=== PATIENT | male | born 1955 | race Caucasian/White ===

== ENCOUNTER 2022-02-09 15:08 | Emergency (ER) | payer OTHER ==
[2022-02-09 15:46] VITALS: BP 105/70; PULSE 85; TEMP 97; BMI 20.7
== END 2022-02-09 23:08 | disposition home or self-care (01) ==
LOC: JER 15:08
DX: F19.10 Other psychoactive substance abuse, uncomplicated (principal); I69.30 Unspecified sequelae of cerebral infarction
CPT/HCPCS: 70450-TC; 99284-25

== ENCOUNTER 2022-02-09 23:18 | Inpatient (IN) | payer OTHER ==
[2022-02-09 13:57] VITALS: BMI 20.7
[2022-02-09] MEDS ORDERED: NICOTINE POLACRILEX 2 MG GUM BUC PRN (23:32)
[2022-02-09] MEDS ORDERED: MAGNESIUM HYDROX 2400MG/30ML ORAL SUSPENSION 30 ML CUP PO PRN (23:32)
[2022-02-09] MEDS ORDERED: MELATONIN 5 MG TABLETS PO PRN (23:32)
[2022-02-09] MEDS ORDERED: MAGNESIUM CITRATE 300 ML BOTTLE PO PRN (23:32)
[2022-02-09] MEDS ORDERED: NICOTINE 10 MG CARTRIDGE (INHALER) IH PRN (23:32)
[2022-02-09] MEDS ORDERED: P-EPHED 60MG/TRIPROLIDI 2.5MG TABLET PO PRN (23:32)
[2022-02-09] MEDS ORDERED: guaiFENesin 200 MG/10 ML 10 ML UNIT-DOSE CUPS PO PRN (23:32)
[2022-02-09] MEDS ORDERED: MAG HYDROX/AL HYDROX/SIMETH 30 ML UNIT-DOSE CUP PO PRN (23:32)
[2022-02-09] MEDS ORDERED: hydrOXYzine PAMOATE 25 MG CAPSULE (FP) PO PRN (23:32)
[2022-02-09] MEDS ORDERED: BISMUTH SUBSALICYLATE 524 MG/30 ML PO PRN (23:32)
[2022-02-09] MEDS ORDERED: BENZOCAINE/MENTHOL (CHLORASEPTIC ) LOZENGE MM PRN (23:32)
[2022-02-09] MEDS ORDERED: LOPERAMIDE HCL 2 MG CAPSULE PO PRN (23:32)
[2022-02-09] MEDS ORDERED: ONDANSETRON *ODT* 4 MG TABLET SL PRN (23:32)
[2022-02-09] MEDS ORDERED: ACETAMINOPHEN 325 MG TABLET (FP) PO PRN ×2 (23:32)
[2022-02-09] MEDS ORDERED: DICYCLOMINE HCL 10 MG CAPSULE PO PRN (23:32)
[2022-02-10] MEDS ORDERED: LISINOPRIL 20 MG TABLET PO SCH ×2 (10:00→12:02)
[2022-02-10] MEDS: PRENATAL VITAMINS W/ FOLIC ACID TABLET (FP) PO SCH (10:30)
[2022-02-10] MEDS: METOPROLOL TARTRATE 25 MG TABLET (FP) PO SCH (10:30)
[2022-02-10 12:05] LABS: HEMATOCRIT 35.8 % (35.4-49); HEMOGLOBIN 12.1 GM/dL (11.7-16.9); MCHC 33.8 g/dl (32.0-35.9); MEAN CELL VOLUME 100.6 fl (80-96); MEAN PLT VOLUME 8.9 fl (7.5-11.1); PLATELET COUNT 289 10^3/uL (134-434); RBC 3.56 M/mm3 (4.00-5.60); RDW 13.5 % (11.9-15.9); WHITE BLOOD COUNT 10.5 K/mm3 (4.0-10.0)
[2022-02-10 12:37] LABS: ALBUMIN 3.8 g/dl (3.4-5.0); CALCIUM 9.3 mg/dL (8.5-10.1)
[2022-02-10 12:38] LABS: BLOOD UREA NITROGEN 26.9 mg/dL (7-18)
[2022-02-10 12:41] LABS: CREATININE 0.9 mg/dL (0.55-1.3)
[2022-02-10 12:42] LABS: BILIRUBIN,TOTAL 0.7 mg/dL (0.2-1); TOT PROT 7.2 g/dl (6.4-8.2)
[2022-02-10] MEDS ORDERED: THIAMINE HCL 100 MG TABLET (FP) PO SCH (22:00)
[2022-02-11] MEDS ORDERED: LISINOPRIL 20 MG TABLET PO SCH (10:00)
[2022-02-11] MEDS: METOPROLOL TARTRATE 25 MG TABLET (FP) PO SCH (10:28)
[2022-02-11] MEDS: PRENATAL VITAMINS W/ FOLIC ACID TABLET (FP) PO SCH (10:28)
[2022-02-11 13:41] VITALS: BP 145/92; PULSE 72; TEMP 98.7
== END 2022-02-11 15:18 | disposition other institution (70) | DRG 897 ==
LOC: YASAS 23:18 → Y6N 02-10 01:53
PROVIDERS: ADMIT Allergy & Immunology; ATTEND Surgery
PROC: HZ2ZZZZ Detoxification Services for Substance Abuse Treatment (ICD-10-PCS; principal; 2022-02-10)
DX: F11.23 Opioid dependence with withdrawal (principal); F10.230 Alcohol dependence with withdrawal, uncomplicated; F17.210 Nicotine dependence, cigarettes, uncomplicated; I10 Essential (primary) hypertension; Z86.79 Personal history of other diseases of the circulatory system; Z20.2 Contact with and (suspected) exposure to infections with a predominantly sexual mode of transmission; Z59.01 Sheltered homelessness
CPT/HCPCS: 36415; 80053; 84520; 85027; 86593; 86780; 87811; C9803-CS; U0003; U0005

== ENCOUNTER 2022-02-11 15:18 | Inpatient (IN) | payer OTHER ==
[2022-02-11] MEDS ORDERED: MAGNESIUM CITRATE 300 ML BOTTLE PO PRN (19:53)
[2022-02-11] MEDS ORDERED: NICOTINE 10 MG CARTRIDGE (INHALER) IH PRN (19:53)
[2022-02-11] MEDS ORDERED: guaiFENesin 200 MG/10 ML 10 ML UNIT-DOSE CUPS PO PRN (19:53)
[2022-02-11] MEDS ORDERED: MAGNESIUM HYDROX 2400MG/30ML ORAL SUSPENSION 30 ML CUP PO PRN (19:53)
[2022-02-11] MEDS ORDERED: P-EPHED 60MG/TRIPROLIDI 2.5MG TABLET PO PRN (19:53)
[2022-02-11] MEDS ORDERED: MAG HYDROX/AL HYDROX/SIMETH 30 ML UNIT-DOSE CUP PO PRN (19:53)
[2022-02-11] MEDS ORDERED: hydrOXYzine PAMOATE 25 MG CAPSULE (FP) PO PRN (19:53)
[2022-02-11] MEDS ORDERED: LOPERAMIDE HCL 2 MG CAPSULE PO PRN (19:53)
[2022-02-11] MEDS ORDERED: BENZOCAINE/MENTHOL (CHLORASEPTIC ) LOZENGE MM PRN (19:53)
[2022-02-11] MEDS ORDERED: IBUPROFEN 400 MG TABLET (FP) PO PRN (19:53)
[2022-02-11] MEDS ORDERED: ACETAMINOPHEN 325 MG TABLET (FP) PO PRN (19:53)
[2022-02-11] MEDS: THIAMINE HCL 100 MG TABLET (FP) PO SCH (22:13)
[2022-02-12] MEDS: PRENATAL VITAMINS W/ FOLIC ACID TABLET (FP) PO SCH (09:49)
[2022-02-12] MEDS: LISINOPRIL 10 MG TABLET PO SCH (09:49)
[2022-02-12] MEDS: METOPROLOL TARTRATE 25 MG TABLET (FP) PO SCH (10:24)
[2022-02-12] MEDS: THIAMINE HCL 100 MG TABLET (FP) PO SCH (21:41)
[2022-02-13] MEDS: LISINOPRIL 10 MG TABLET PO SCH (09:24)
[2022-02-13] MEDS: PRENATAL VITAMINS W/ FOLIC ACID TABLET (FP) PO SCH (09:25)
[2022-02-13] MEDS: METOPROLOL TARTRATE 25 MG TABLET (FP) PO SCH (09:25)
[2022-02-13] MEDS: THIAMINE HCL 100 MG TABLET (FP) PO SCH (22:24)
[2022-02-13] MEDS: MELATONIN 5 MG TABLETS PO PRN (22:24)
[2022-02-14] MEDS: PRENATAL VITAMINS W/ FOLIC ACID TABLET (FP) PO SCH (09:38)
[2022-02-14] MEDS: METOPROLOL TARTRATE 25 MG TABLET (FP) PO SCH (09:39)
[2022-02-14] MEDS: LISINOPRIL 10 MG TABLET PO SCH (09:39)
[2022-02-14] MEDS: THIAMINE HCL 100 MG TABLET (FP) PO SCH (21:12)
[2022-02-14] MEDS: MELATONIN 5 MG TABLETS PO PRN (21:14)
[2022-02-15] MEDS: METOPROLOL TARTRATE 25 MG TABLET (FP) PO SCH (09:34)
[2022-02-15] MEDS: LISINOPRIL 10 MG TABLET PO SCH (09:34)
[2022-02-15] MEDS: PRENATAL VITAMINS W/ FOLIC ACID TABLET (FP) PO SCH (09:34)
[2022-02-15] MEDS: THIAMINE HCL 100 MG TABLET (FP) PO SCH (21:08)
[2022-02-15] MEDS: MELATONIN 5 MG TABLETS PO PRN (21:08)
[2022-02-16] MEDS: LISINOPRIL 10 MG TABLET PO SCH (09:44)
[2022-02-16] MEDS: METOPROLOL TARTRATE 25 MG TABLET (FP) PO SCH (09:45)
[2022-02-16] MEDS: PRENATAL VITAMINS W/ FOLIC ACID TABLET (FP) PO SCH (09:45)
[2022-02-16] MEDS: MELATONIN 5 MG TABLETS PO PRN (21:16)
[2022-02-16] MEDS: THIAMINE HCL 100 MG TABLET (FP) PO SCH (21:16)
[2022-02-17] MEDS: LISINOPRIL 10 MG TABLET PO SCH (10:07)
[2022-02-17] MEDS: METOPROLOL TARTRATE 25 MG TABLET (FP) PO SCH (10:07)
[2022-02-17] MEDS: PRENATAL VITAMINS W/ FOLIC ACID TABLET (FP) PO SCH (10:08)
[2022-02-17] MEDS: THIAMINE HCL 100 MG TABLET (FP) PO SCH (21:27)
[2022-02-17] MEDS: MELATONIN 5 MG TABLETS PO PRN (21:27)
[2022-02-18] MEDS: PRENATAL VITAMINS W/ FOLIC ACID TABLET (FP) PO SCH (09:53)
[2022-02-18] MEDS: LISINOPRIL 10 MG TABLET PO SCH (09:53)
[2022-02-18] MEDS: METOPROLOL TARTRATE 25 MG TABLET (FP) PO SCH (09:53)
[2022-02-18] MEDS ORDERED: TUBERCULIN PPD 5 TU/0.1ML VIAL ID ONE (16:47)
[2022-02-18] MEDS: MELATONIN 5 MG TABLETS PO PRN (21:15)
[2022-02-18] MEDS: THIAMINE HCL 100 MG TABLET (FP) PO SCH (21:15)
[2022-02-19] MEDS: METOPROLOL TARTRATE 25 MG TABLET (FP) PO SCH (10:06)
[2022-02-19] MEDS: LISINOPRIL 10 MG TABLET PO SCH (10:07)
[2022-02-19] MEDS: PRENATAL VITAMINS W/ FOLIC ACID TABLET (FP) PO SCH (10:07)
[2022-02-19] MEDS: MELATONIN 5 MG TABLETS PO PRN (21:19)
[2022-02-19] MEDS: THIAMINE HCL 100 MG TABLET (FP) PO SCH (21:19)
[2022-02-20] MEDS: PRENATAL VITAMINS W/ FOLIC ACID TABLET (FP) PO SCH (09:28)
[2022-02-20] MEDS: LISINOPRIL 10 MG TABLET PO SCH (09:28)
[2022-02-20] MEDS: METOPROLOL TARTRATE 25 MG TABLET (FP) PO SCH (09:28)
[2022-02-20] MEDS: THIAMINE HCL 100 MG TABLET (FP) PO SCH (21:20)
[2022-02-20] MEDS: MELATONIN 5 MG TABLETS PO PRN (21:20)
[2022-02-21] MEDS: LISINOPRIL 10 MG TABLET PO SCH (09:46)
[2022-02-21] MEDS: PRENATAL VITAMINS W/ FOLIC ACID TABLET (FP) PO SCH (09:46)
[2022-02-21] MEDS: METOPROLOL TARTRATE 25 MG TABLET (FP) PO SCH (09:46)
[2022-02-21] MEDS: MELATONIN 5 MG TABLETS PO PRN (21:16)
[2022-02-21] MEDS: THIAMINE HCL 100 MG TABLET (FP) PO SCH (21:16)
[2022-02-22] MEDS: METOPROLOL TARTRATE 25 MG TABLET (FP) PO SCH (09:05)
[2022-02-22] MEDS: PRENATAL VITAMINS W/ FOLIC ACID TABLET (FP) PO SCH (09:05)
[2022-02-22] MEDS: LISINOPRIL 10 MG TABLET PO SCH (09:05)
[2022-02-22] MEDS: THIAMINE HCL 100 MG TABLET (FP) PO SCH (21:05)
[2022-02-22] MEDS: MELATONIN 5 MG TABLETS PO PRN (21:05)
[2022-02-23] MEDS: PRENATAL VITAMINS W/ FOLIC ACID TABLET (FP) PO SCH (09:44)
[2022-02-23] MEDS: LISINOPRIL 10 MG TABLET PO SCH (09:44)
[2022-02-23] MEDS: METOPROLOL TARTRATE 25 MG TABLET (FP) PO SCH (09:44)
[2022-02-23] MEDS: MELATONIN 5 MG TABLETS PO PRN (21:09)
[2022-02-23] MEDS: THIAMINE HCL 100 MG TABLET (FP) PO SCH (21:09)
[2022-02-24] MEDS: METOPROLOL TARTRATE 25 MG TABLET (FP) PO SCH (09:45)
[2022-02-24] MEDS: LISINOPRIL 10 MG TABLET PO SCH (09:45)
[2022-02-24] MEDS: PRENATAL VITAMINS W/ FOLIC ACID TABLET (FP) PO SCH (09:45)
[2022-02-24] MEDS: MELATONIN 5 MG TABLETS PO PRN (21:06)
[2022-02-24] MEDS: THIAMINE HCL 100 MG TABLET (FP) PO SCH (21:06)
[2022-02-25] MEDS: LISINOPRIL 10 MG TABLET PO SCH (09:58)
[2022-02-25] MEDS: METOPROLOL TARTRATE 25 MG TABLET (FP) PO SCH (09:58)
[2022-02-25] MEDS: PRENATAL VITAMINS W/ FOLIC ACID TABLET (FP) PO SCH (09:59)
[2022-02-25] MEDS: THIAMINE HCL 100 MG TABLET (FP) PO SCH (21:07)
[2022-02-25] MEDS: MELATONIN 5 MG TABLETS PO PRN (21:07)
[2022-02-26] MEDS: LISINOPRIL 10 MG TABLET PO SCH (10:00)
[2022-02-26] MEDS: METOPROLOL TARTRATE 25 MG TABLET (FP) PO SCH (10:01)
[2022-02-26] MEDS: PRENATAL VITAMINS W/ FOLIC ACID TABLET (FP) PO SCH (10:01)
[2022-02-26] MEDS: THIAMINE HCL 100 MG TABLET (FP) PO SCH (21:33)
[2022-02-26] MEDS: MELATONIN 5 MG TABLETS PO PRN (21:33)
[2022-02-27] MEDS: LISINOPRIL 10 MG TABLET PO SCH (09:50)
[2022-02-27] MEDS: METOPROLOL TARTRATE 25 MG TABLET (FP) PO SCH (09:51)
[2022-02-27] MEDS: PRENATAL VITAMINS W/ FOLIC ACID TABLET (FP) PO SCH (09:51)
[2022-02-27] MEDS: MELATONIN 5 MG TABLETS PO PRN (21:05)
[2022-02-27] MEDS: THIAMINE HCL 100 MG TABLET (FP) PO SCH (21:05)
[2022-02-28] MEDS: LISINOPRIL 10 MG TABLET PO SCH (09:52)
[2022-02-28] MEDS: PRENATAL VITAMINS W/ FOLIC ACID TABLET (FP) PO SCH (09:53)
[2022-02-28] MEDS: METOPROLOL TARTRATE 25 MG TABLET (FP) PO SCH (09:53)
[2022-02-28] MEDS: THIAMINE HCL 100 MG TABLET (FP) PO SCH (21:06)
[2022-02-28] MEDS: MELATONIN 5 MG TABLETS PO PRN (21:06)
[2022-03-01] MEDS: LISINOPRIL 10 MG TABLET PO SCH (10:14)
[2022-03-01] MEDS: METOPROLOL TARTRATE 25 MG TABLET (FP) PO SCH (10:14)
[2022-03-01] MEDS: PRENATAL VITAMINS W/ FOLIC ACID TABLET (FP) PO SCH (10:14)
[2022-03-01] MEDS: MELATONIN 5 MG TABLETS PO PRN (21:14)
[2022-03-01] MEDS: THIAMINE HCL 100 MG TABLET (FP) PO SCH (21:14)
[2022-03-02] MEDS: PRENATAL VITAMINS W/ FOLIC ACID TABLET (FP) PO SCH (09:59)
[2022-03-02] MEDS: METOPROLOL TARTRATE 25 MG TABLET (FP) PO SCH (09:59)
[2022-03-02] MEDS: LISINOPRIL 10 MG TABLET PO SCH (09:59)
[2022-03-02] MEDS: THIAMINE HCL 100 MG TABLET (FP) PO SCH (21:01)
[2022-03-02] MEDS: MELATONIN 5 MG TABLETS PO PRN (21:02)
[2022-03-03] MEDS: METOPROLOL TARTRATE 25 MG TABLET (FP) PO SCH (09:52)
[2022-03-03] MEDS: LISINOPRIL 10 MG TABLET PO SCH (09:52)
[2022-03-03] MEDS: PRENATAL VITAMINS W/ FOLIC ACID TABLET (FP) PO SCH (09:52)
[2022-03-03] MEDS: THIAMINE HCL 100 MG TABLET (FP) PO SCH (21:08)
[2022-03-03] MEDS: MELATONIN 5 MG TABLETS PO PRN (21:08)
[2022-03-04] MEDS: METOPROLOL TARTRATE 25 MG TABLET (FP) PO SCH (09:47)
[2022-03-04] MEDS: LISINOPRIL 10 MG TABLET PO SCH (09:47)
[2022-03-04] MEDS: PRENATAL VITAMINS W/ FOLIC ACID TABLET (FP) PO SCH (09:47)
[2022-03-04] MEDS: THIAMINE HCL 100 MG TABLET (FP) PO SCH (21:11)
[2022-03-04] MEDS: MELATONIN 5 MG TABLETS PO PRN (21:11)
[2022-03-05] MEDS: METOPROLOL TARTRATE 25 MG TABLET (FP) PO SCH (10:28)
[2022-03-05] MEDS: LISINOPRIL 10 MG TABLET PO SCH (10:28)
[2022-03-05] MEDS: PRENATAL VITAMINS W/ FOLIC ACID TABLET (FP) PO SCH (10:28)
[2022-03-05] MEDS: THIAMINE HCL 100 MG TABLET (FP) PO SCH (21:12)
[2022-03-05] MEDS: MELATONIN 5 MG TABLETS PO PRN (21:12)
[2022-03-06] MEDS: METOPROLOL TARTRATE 25 MG TABLET (FP) PO SCH (10:05)
[2022-03-06] MEDS: PRENATAL VITAMINS W/ FOLIC ACID TABLET (FP) PO SCH (10:05)
[2022-03-06] MEDS: LISINOPRIL 10 MG TABLET PO SCH (10:05)
[2022-03-06] MEDS: MELATONIN 5 MG TABLETS PO PRN (21:31)
[2022-03-06] MEDS: THIAMINE HCL 100 MG TABLET (FP) PO SCH (21:31)
[2022-03-07] MEDS: LISINOPRIL 10 MG TABLET PO SCH (10:00)
[2022-03-07] MEDS: METOPROLOL TARTRATE 25 MG TABLET (FP) PO SCH (10:00)
[2022-03-07] MEDS: PRENATAL VITAMINS W/ FOLIC ACID TABLET (FP) PO SCH (10:00)
[2022-03-07] MEDS: MELATONIN 5 MG TABLETS PO PRN (21:14)
[2022-03-07] MEDS: THIAMINE HCL 100 MG TABLET (FP) PO SCH (21:14)
[2022-03-08] MEDS: LISINOPRIL 10 MG TABLET PO SCH (09:47)
[2022-03-08] MEDS: METOPROLOL TARTRATE 25 MG TABLET (FP) PO SCH (09:47)
[2022-03-08] MEDS: PRENATAL VITAMINS W/ FOLIC ACID TABLET (FP) PO SCH (09:48)
[2022-03-08] MEDS: THIAMINE HCL 100 MG TABLET (FP) PO SCH (21:10)
[2022-03-08] MEDS: MELATONIN 5 MG TABLETS PO PRN (21:10)
[2022-03-09 08:26] VITALS: TEMP 98
[2022-03-09] MEDS: LISINOPRIL 10 MG TABLET PO SCH (09:04)
[2022-03-09] MEDS: METOPROLOL TARTRATE 25 MG TABLET (FP) PO SCH (09:04)
[2022-03-09] MEDS: PRENATAL VITAMINS W/ FOLIC ACID TABLET (FP) PO SCH (09:04)
[2022-03-09 09:16] VITALS: BP 129/89; PULSE 101
== END 2022-03-09 09:33 | disposition home or self-care (01) | DRG 895 ==
LOC: YASAS 15:18 → Y3E 15:19
PROVIDERS: ADMIT Allergy & Immunology; ATTEND Psychiatry & Neurology Pain Medicine
PROC: HZ42ZZZ Group Counseling for Substance Abuse Treatment, Cognitive-Behavioral (ICD-10-PCS; principal; 2022-02-11)
DX: F11.20 Opioid dependence, uncomplicated (principal); F10.20 Alcohol dependence, uncomplicated; I10 Essential (primary) hypertension; Z86.73 Personal history of transient ischemic attack (TIA), and cerebral infarction without residual deficits; Z20.2 Contact with and (suspected) exposure to infections with a predominantly sexual mode of transmission; Z99.89 Dependence on other enabling machines and devices